=== PATIENT | male | born 1960 | race American Indian/Alaskan Native ===

== ENCOUNTER 2019-11-12 08:26 | Day surgery (SDC) | payer MEDICAID ==
[2019-11-11 15:26] LABS: BASOPHILS # (AUTO) 0.2 X10'3 (0-0.2); EOSINOPHILS # (AUTO) 0.1 X10'3 (0-0.9); MEAN PLATELET VOLUME 9.7 FL (7.4-10.4); MONOCYTES # (AUTO) 0.6 X10'3 (0-0.9); NEUTROPHILS # (AUTO) 2.6 X10'3 (1.8-7.7); RED CELL DISTRIBUTION WIDTH 15.8 % (11.5-14.5)
[2019-11-11 15:27] LABS: BASOPHILS % (AUTO) 3.6 % (0-1); EOSINOPHILS % (AUTO) 1.9 % (0-6); LYMPHOCYTES # (AUTO) 2.1 X10'3 (1.1-4.8); LYMPHOCYTES % (AUTO) 37.1 % (21-51); MEAN CORPUSCULAR HEMOGLOBIN 28.9 PG (27.0-31.0); MEAN CORPUSCULAR HGB CONC 33.5 g/dL (33.0-36.5); MEAN CORPUSCULAR VOLUME 86.4 FL (78-98); MONOCYTES % (AUTO) 11.3 % (2-12); NEUTROPHILS % (AUTO) 46.1 % (42-75); PRE OP HEMATOCRIT 40.5 % (42.0-52.0); PRE OP HEMOGLOBIN 13.6 g/dL (14.0-17.9); PRE OP PLATELET COUNT 226 X10'3 (140-440); RED BLOOD COUNT 4.69 X10'6 (4.70-6.10)
[2019-11-11 15:40] LABS: ALBUMIN 3.9 G/DL (3.4-5.0); ALKALINE PHOSPHATASE 87 IU/L (46-116); BLOOD UREA NITROGEN 13 MG/DL (7-18); BUN/CREATININE RATIO 12.4 (5.4-32.0); CHLORIDE 106 MMOL/L (99-107); CREATININE 1.05 MG/DL (0.60-1.10); PRE OP ALT 65 U/L (30-65); PRE OP ANION GAP 9 (8-16); PRE OP AST 33 U/L (10-37); PRE OP BILIRUB, TOTAL 0.4 MG/DL (0.0-1.0); PRE OP GLUCOSE 88 MG/DL (70-104); PRE OP POTASSIUM 3.9 MMOL/L (3.4-5.1); PRE OP SODIUM 143 MMOL/L (135-145); TOTAL CARBON DIOXIDE 28.2 MMOL/L (24-32); TOTAL PROTEIN 7.7 G/DL (6.4-8.2); eGFR 73 ML/MIN
[~2019-11-12] VITALS: Ht 152.4 cm; Wt 77.1 kg
[2019-11-12] VITALS (8 sets, daily range): BP systolic 106–153; BP diastolic 63–83
[~2019-11-12 08:26] MED LIST: FLO0.4C PO; cefazolin/dext.iso 2gm/100ml 100 ML IV ONE; famotidine 10mg tablet PO ONE; ringers solution, lacted 1,000 ML IV SCH; vancomycin inj 1,500 MG in normal saline 300ml IV soln IV ONE
[2019-11-12] MEDS ORDERED: BUPIVAcaine/PF 2.5 mg/ml (0.25%) 30ml vial ONE (10:01)
[2019-11-12] MEDS ORDERED: triamcinolone acetonide 40mg/ml inj ONE (10:01)
[2019-11-12] MEDS ORDERED: sevoflurane 250ml liquid IH ONE (10:11)
[2019-11-12] MEDS ORDERED: dexamethasone sod phosphate 10mg/ml inj ONE (10:11)
[2019-11-12] MEDS ORDERED: fentaNYL /PF 50mcg/ml 5ml ampule ONE (10:14)
[2019-11-12] MEDS ORDERED: MIDAZolam 5mg/5ml vial ONE (10:14)
[2019-11-12] MEDS ORDERED: ondansetron/PF 4mg/2ml inj ONE (10:22)
[2019-11-12] MEDS ORDERED: LIDOcaine 2% (20mg/ml) 5ml vial ONE (10:22)
[2019-11-12] MEDS ORDERED: propofol inj 20 ML IV ONE (10:22)
[2019-11-12] MEDS ORDERED: ringers solution, lacted 1,000 ML IV SCH (10:42)
[2019-11-12] MEDS ORDERED: hydrALAZINE 20mg/ml inj. IV PRN (10:45)
[2019-11-12] MEDS ORDERED: ondansetron/PF 4mg/2ml inj IV PRN (10:45)
[2019-11-12] MEDS ORDERED: morphine 4 MG/ML inj SYRINge IV PRN ×2 (10:45)
[2019-11-12] MEDS ORDERED: fentaNYL/PF 50MCG/1 ML 2ML syringe IV PRN ×2 (10:45)
[2019-11-12] MEDS ORDERED: labetalol 20mg/4ml (5mg/ml) syringe IV PRN (10:45)
--- NOTE | 2019-11-12 12:05 | NUR ---
Received from OR via [facility], accompanied by Anesthesiologist DR FOURNIER and report given by Anesthesiologist. PT DROWSY, DENIES PAIN. NO S/S OF DISTRESS/DISCOMFORT, BILAT KNEES W/BIAS WRAP COVERING INCISION, YULISSA, GUSTAVO. Addendum: 11/12/19 at 1244 by Josie Aguilar RN Amended: Links added.
[2019-11-12] MEDS ORDERED: oxyCODONE/APAP 5-325mg tablet PO ONE (13:20)
--- NOTE | 2019-11-12 13:35 | NUR ---
D/C INSTRUCTIONS GIVEN AND GONE OVER W/PT AND PTS FAMILY WHOM VERBALIZE UNDERSTANDING, PT GIVEN PAIN PILL FOR RIDE HOME, PT D/CD TO PRIVATE VEHICLE W/O INCIDENT. Addendum: 11/12/19 at 1351 by Josie Aguilar RN Amended: Links added.
== END 2019-11-12 13:35 | disposition home or self-care (01) ==
LOC: PAS 08:26
PROVIDERS: ATTEND Orthopaedic Surgery
DX: S83.232A Complex tear of medial meniscus, current injury, left knee, initial encounter (principal); S83.231A Complex tear of medial meniscus, current injury, right knee, initial encounter; S83.282A Other tear of lateral meniscus, current injury, left knee, initial encounter; S83.271A Complex tear of lateral meniscus, current injury, right knee, initial encounter; M94.262 Chondromalacia, left knee; M94.261 Chondromalacia, right knee; M17.0 Bilateral primary osteoarthritis of knee; N40.1 Benign prostatic hyperplasia with lower urinary tract symptoms; F32.9 Major depressive disorder, single episode, unspecified; F41.9 Anxiety disorder, unspecified; G89.29 Other chronic pain; F12.90 Cannabis use, unspecified, uncomplicated; B18.2 Chronic viral hepatitis C; Z79.899 Other long term (current) drug therapy; X58.XXXA Exposure to other specified factors, initial encounter; Y93.89 Activity, other specified; Y92.89 Other specified places as the place of occurrence of the external cause; Y99.8 Other external cause status
CPT/HCPCS: 29873; 29879; 29880; 36415; 80053; 82948; 85025; 93005; J1100; J2001; J2250; J2270; J2405; J2704; J3010; J3301; J3370; J3490; A4215; A4618; A6250; A6449; A7000; J7120